=== PATIENT | male | born 1990 | race African-American/Black ===

== ENCOUNTER 2024-10-12 18:06 | Emergency (ER) | payer MEDICAID ==
[~2024-10-12] VITALS: Ht 180.3 cm; Wt 131.5 kg
[2024-10-12 18:40] VITALS: BP 141/84; PULSE 86; RESP 16; O2SAT 97
[2024-10-12 23:45] VITALS: TEMP 99.9
[2024-10-12] MEDS: ONDANSETRON HCL 4MG TABLET PO ONE (23:45)
[2024-10-12] MEDS ORDERED: ACETAMINOPHEN 325MG TABLET PO NR (23:45)
[2024-10-12] MEDS ORDERED: ONDANSETRON HCL 4MG TABLET PO NR (23:45)
[2024-10-12] MEDS: ACETAMINOPHEN 325MG TABLET PO ONE (23:45)
== END 2024-10-12 23:47 | disposition home or self-care (01) ==
LOC: ER 18:06
DX: B34.9 Viral infection, unspecified (principal); Z20.822 Contact with and (suspected) exposure to COVID-19
CPT/HCPCS: 99283; 87426; 87804 ×2; Q0162